=== PATIENT | male | born 1960 | race Caucasian/White ===

== ENCOUNTER 2020-06-26 18:54 | Emergency (ER) | payer MEDICARE, MEDICAID, SELFPAY ==
--- NOTE | ~2020-06-26 | CT_ITS ---
EXAMINATION: CT abdomen pelvis w con DATE: 06/26/2020 21:03 INDICATION: Urinary retention. Lower abdominal pain. TECHNIQUE: Computed tomography (CT) of the abdomen and pelvis was performed with 100 cc Omnipaque 350 intravenous contrast. The dose-length product was 452.89 mGy-cm. Automated exposure control and iter ative reconstruction technique were employed. COMPARISON: Comparison to multiple prior studies sequentially, with oldest reviewed study dated 03/19. FINDINGS: Lung bases are unremarkable. Heart size normal. No significant pleural or pericardial effus ion. There are calcified granulomas of the spleen. There are multiple liver cysts. There are cholecys tectomy clips. The pancreas, adrenal glands are unremarkable. There are bilateral renal cysts. There is atherosclerosis of the aorta. No evidence for aneurysm. There is a rectal Choletec anastomotic sut ure line. No free air or free fluid. No evidence for acute appendicitis. 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 Nonobstructive bowel gas pattern. Small hiatal hernia with thickening of the dis joselito esophagus, concerning for esophagitis. No acute osseous abnormality. IMPRESSION: 1. Mild thickening of the distal esophagus, suspicious for esophagitis. Reviewed, dictated and finalized at location [facility].
[2020-06-26 18:53] VITALS: BP 129/93; PULSE 76; RESP 18; TEMP 37.1; O2SAT 98
--- NOTE | 2020-06-26 19:32 | ED.ABDPAIN ---
HPI - Abdominal Pain General Chief Complaint: Urogenital-Male Stated Complaint: URINARY RETENTION Time Seen by Provider: 06/26/20 19:04 History of Present Illness HPI narrative: Patient is a 59-year-old male who presents ER with abdominal pain over the last day. It is in the inguinal region of his abdomen. Has had this pain in the past when he had an inguinal hernia. That was repaired several years ago. He reports he is urinating today and is also had a bowel movement however he was straining to have his bowel movement. No abdominal distention. No belching. Related Data Home Medications Medication Instructions Recorded Confirmed acetaminophen 500 mg tablet 500 mg PO Q4H PRN 09/15/19 albuterol sulfate 90 mcg/actuation 1 inhalation INHALATION Q4-6H PRN 09/15/19 breath activated powder inhaler,sensor buspirone 5 mg tablet 5 mg PO BID 09/15/19 citalopram 40 mg tablet 20 mg PO DAILY 09/15/19 ibuprofen 800 mg tablet 200 mg PO Q6H 09/15/19 multivitamin 1 tablet PO DAILY 09/15/19 paliperidone 6 mg tablet,extended 6 mg PO QAM 09/15/19 release 24 hr psyllium 1 tbsp PO DAILY 09/15/19 trazodone 50 mg tablet 50 mg PO BID 09/15/19 carboxymethylcellulose sodium 06/26/20 [Artificial Tears (cmc)] magnesium hydroxide [Milk of 06/26/20 Magnesia] quetiapine 50 mg PO BID 06/26/20 Allergies Allergy/AdvReac Type Severity Reaction Status Date / Time No Known Allergies Allergy Verified 06/26/20 19:19 Review of Systems Review of Systems: All systems reviewed & are unremarkable except as noted in HPI and below Constitutional: Constitutional: Denies chills, Denies fever(s) and Denies weakness ENT: Denies nasal congestion and Denies sore throat Cardiovascular: Cardiovascular: Denies chest pain and Denies radiating jaw, neck or arm pain Respiratory: Respiratory: Denies cough and Denies dyspnea Gastrointestinal: Gastrointestinal: Reports abdominal pain, Reports constipation, Denies nausea and Denies vomiting Genitourinary: Genitourinary: Denies hematuria, Denies dysuria and Denies urinary frequency [facility] Past Medical History Medical History (Updated 06/26/20 @ 22:48 by Vishnu Ellsworth MD) Anxiety COPD (chronic obstructive pulmonary disease) Hypercholesterolemia Manic depression Pancreatitis SVT (supraventricular tachycardia) Traumatic brain injury Surgical History Surgical History (Updated 06/26/20 @ 19:39 by Vishnu Ellsworth MD) H/O inguinal hernia repair Social History Social History Smoking status: Heavy tobacco smoker Alcohol intake: never Exam Narrative: Exam Narrative: GENERAL: Well-appearing, well-nourished, and in no acute distress. HEAD: Normocephalic, atraumatic. ENT: Mucous membranes moist. CHEST: Clear to auscultation. No respiratory distress. HEART: Regular rate and rhythm. Normal peripheral pulses. ABDOMEN: Soft, nontender, nondistended, normal active bowel sounds. No inguinal mass. EXTREMITIES: Normal range of motion. No edema. SKIN: Warm, dry, no rash. NEURO: Alert and oriented x3. Course Course Emergency Course: Unremarkable evaluation. Discharge home. Vital Signs Vital signs: Vital Signs Temperature 98.7 F 06/26/20 18:53 Pulse Rate 76 06/26/20 18:53 Respiratory Rate 18 06/26/20 18:53 Blood Pressure 129/93 H 06/26/20 18:53 Pulse Oximetry 98 06/26/20 18:53 Temperature 98.7 F 06/26/20 18:53 Pulse Rate 79 06/26/20 22:40 Respiratory Rate 16 06/26/20 22:40 Blood Pressure 128/81 06/26/20 22:40 Pulse Oximetry 100 06/26/20 22:40 MDM - Abdominal Pain Lab Data Result diagrams: 06/26/20 19:38 06/26/20 19:38 Labs: Lab Results 06/26/20 06/26/20 06/26/20 Range/Units 19:38 19:38 19:42 WBC 4.9 (4.5-10.0) K/mm3 RBC 4.31 L (4.6-6.20) M/mm3 Hgb 13.3 L (14.0-18.0) g/dL Hct 36.1 L (42.0-52.0) % MCV 83.8 (80-
[2020-06-26 19:45] LABS: Basophils Percent Auto 0.8 % (0.2-1.2); Eosinophils Absolute Auto 0.1 K/mm3 (0-0.3); Eosinophils Percent Auto 2.2 % (0-4.4); Hematocrit 36.1 % (42.0-52.0); Hemoglobin 13.3 g/dL (14.0-18.0); Immature Granulocyte Absolute 0.02 K/mm3 (0.00-0.031); Immature Granulocyte Percent A 0.4 % (0-0.5); Lymphocytes Absolute Auto 1.31 K/mm3 (0.9-3.2); Lymphocytes Percent Auto 26.8 % (18.3-44.2); Mean Corpuscular HGB Conc 36.8 g/dl (32-36); Mean Corpuscular Hemoglobin 30.9 pg (26-34); Mean Corpuscular Volume 83.8 fl (80-100); Mean Platelet Volume 10.1 fl (7.4-10.4); Monocytes Absolute Auto 0.4 K/mm3 (0.1-0.6); Monocytes Percent Auto 7.8 % (2.6-8.5); Platelet Count Result 181 k/mm3 (150-375); Red Blood Count 4.31 M/mm3 (4.6-6.20); Red Cell Distribution Width 11.9 % (11.5-14.5); White Blood Count 4.9 K/mm3 (4.5-10.0)
[2020-06-26 19:53] LABS: Add Urine Microscopic? YES; Appearance Urine Clear (Clear); Bilirubin Urine Negative (Negative); Blood Urine Negative (Negative); Color Urine Yellow (Yellow); Glucose Urine UA Negative (Negative); Ketones Urine Negative (Negative); Leukocyte Esterase Ur Negative LEU/UL (Negative); Mucus Urine Few /lpf; Nitrate Urine Negative (Negative); Protein Urine Negative (Negative); RBC Urine 0-2 /hpf (0-2); Specific Grav Ur 1.021 (1.001-1.035); Urobilinogen Urine Negative mg/dL (<2.0); WBC Urine 0-3 /hpf
[2020-06-26 19:59] LABS: Anion Gap 6 mmol/L (8-16); Blood Urea Nitrogen 12 mg/dL (9-20); Calcium 8.6 mg/dL (8.4-10.2); Carbon Dioxide 24 mmol/L (22-30); Chloride 105 mmol/L (98-107); Estimated CRCL calculation 82 ml/min; Estimated Glomerular Filt Rate > 60; Glucose 96 mg/dL (75-110); Potassium 3.9 mmol/L (3.4-5.0); Sodium 135 mmol/L (137-145)
[2020-06-26 20:30] VITALS: BP 135/83; PULSE 81; RESP 16; O2SAT 100
[2020-06-26 22:40] VITALS: BP 128/81; PULSE 79; RESP 16; O2SAT 100
[2020-06-27 00:41] VITALS: BP 128/81; PULSE 79; RESP 16; O2SAT 100
[2020-06-27 06:20] VITALS: BP 139/73; PULSE 83; RESP 16; O2SAT 100
== END 2020-06-27 06:20 ==
PROVIDERS: Emergency Provider Emergency Medicine; PCP Emergency Medicine
DX: R10.32 Left lower quadrant pain (principal); R10.31 Right lower quadrant pain; F41.9 Anxiety disorder, unspecified; J44.9 Chronic obstructive pulmonary disease, unspecified; E78.5 Hyperlipidemia, unspecified; F32.9 Major depressive disorder, single episode, unspecified; R93.3 Abnormal findings on diagnostic imaging of other parts of digestive tract; F17.200 Nicotine dependence, unspecified, uncomplicated
CPT/HCPCS: 36415; 74177; 80048; 81001; 85025; 99284; Q9967

== ENCOUNTER 2023-02-19 20:05 | Emergency (ER) | payer OTHER, SELFPAY ==
--- NOTE | ~2023-02-19 | CT_ITS ---
Clinical Indication: Chest pain, abdominal pain CT Scan of the Chest, Abdomen, and Pelvis with Contrast: Technique: Contiguous sections were acquired throughout the chest, abdomen, and pelvis after intraven ous administration of 100 cc of Omnipaque 350. Dose reduction technique was used on this scan by dhruv moon automated exposure control and iterative reconstruction technique. The dose-length product (DL P) was 1356.18 mGy-cm. COMPARISON: 07/17/2020 Findings: There is no evidence of any significant mediastinal, hilar or axillary lymphadenopathy. No definite p ulmonary embolus seen, though respiratory motion artifact mildly limits evaluation. No aortic aneurys m or dissection.. Probable mild coronary artery calcifications. There is no evidence of pleural or pericardial effusion. The lungs are clear. No pulmonary nodules or infiltrates are noted. Numerous hepatic cysts are present, most of which are less than a centimeter, but with 1 dominant cys t centrally measuring 5.7 cm in diameter. Cholecystectomy clips are present. The spleen, pancreas, ad renals and kidneys are within normal limits. 02/18/2023No lymphadenopathy. No bowel obstruction or bowel wall thickening. There is no evidence to suggest acute appendicitis. Sm all fat-containing umbilical hernia present. Urinary bladder is unremarkable. There is stable mass which appears to be exophytic from the rectum t o the left side, with peripheral thin calcification. Impression: No definite pulmonary embolus. Evaluation somewhat suboptimal due to respiratory motion artifact. No acute abnormalities identified. Small fat-containing umbilical hernia. Stable mass which appears to be exophytic from the left side of the rectum, as noted above. Stability since 2019 is consistent with benignity. Reviewed, dictated and finalized at [facility]. Impression: No definite pulmonary embolus. Evaluation somewhat suboptimal due to respirator y motion artifact. No acute abnormalities identified. Small fat-containing umbilical hernia. Stable mass which appears to be exophytic from the left side of the rectum, as noted above. Stability since 2019 is consistent with benignity.
[2023-02-19 20:18] VITALS: BP 121/78; PULSE 103; RESP 20; TEMP 36.4; O2SAT 97; O2SAT 99
--- NOTE | 2023-02-19 20:20 | ECG_ITS ---
Measurements Intervals [place] Rate: 91 P: 41 MD: 137 QRS: -14 QRSD: 94 T: 47 QT: 354 QTc: 436 Interpretive Statements SINUS RHYTHM MINOR RV CONDUCTION DELAY BORDERLINE ECG COMPARED TO ECG 05/14/2019 10:40:12 NO SIGNIFICANT CHANGES Electronically Signed On 02-20-2023 7:24:40 CDT by Reagan Chavez M.D.
--- NOTE | 2023-02-19 20:30 | ED.CHESTPAIN ---
HPI - Chest Pain General Chief Complaint: Chest Pain Stated Complaint: chest pain Time Seen by Provider: 02/19/23 20:22 History of Present Illness HPI narrative: Patient is a 62-year-old male with a history of COPD, hyperlipidemia, schizophrenia presenting with chest pain. Patient states that for the last hour he has had 10 out of 10 left-sided chest pain associated with shortness of breath. States that he has never had pain like this before. He also complains of abdominal pain. Denies headache, new numbness or weakness, nausea or vomiting, diarrhea, dysuria, leg swelling. Related Data Home Medications Medication Instructions Recorded Confirmed acetaminophen 500 mg tablet 500 mg PO Q4H PRN Pain 09/15/19 (Acetaminophen Pain Relief) albuterol sulfate 90 mcg/actuation 1 inhalation inhalation Q4-6H PRN 09/15/19 breath activated powder Shortness Of Breath Or Wheezing inhaler,sensor (Proair Digihaler) buspirone 5 mg tablet 5 mg PO BID 09/15/19 citalopram 40 mg tablet 20 mg PO DAILY 09/15/19 ibuprofen 800 mg tablet 200 mg PO Q6H 09/15/19 multivitamin 1 tablet PO DAILY 09/15/19 paliperidone 6 mg tablet,extended 6 mg PO QAM 09/15/19 release 24 hr psyllium (Fiber Smooth oral powder) 1 tbsp PO DAILY 09/15/19 trazodone 50 mg tablet 50 mg PO BID 09/15/19 carboxymethylcellulose sodium 1 % 06/26/20 eye drops (Artificial Tears (carboxymethylcellulose)) magnesium hydroxide 400 mg/5 mL 06/26/20 oral suspension (Milk of Magnesia) quetiapine 50 mg tablet 50 mg PO BID 06/26/20 Allergies Allergy/AdvReac Type Severity Reaction Status Date / Time No Known Allergies Allergy Verified 06/26/20 19:19 Review of Systems Review of Systems: All systems reviewed & are unremarkable except as noted in HPI and below PMFSH Past Medical History Medical History Anxiety COPD (chronic obstructive pulmonary disease) Hypercholesterolemia Manic depression Pancreatitis SVT (supraventricular tachycardia) Traumatic brain injury Surgical History Surgical History H/O inguinal hernia repair Family History Family History Father Cerebrovascular accident Mother Family history of heart disease in male family member before age 55 Other Family history of cardiovascular disease Social History Social History Smoking status: Heavy tobacco smoker Alcohol intake: never Gender identity (if verbalized by the patient): Male Exam Narrative: GENERAL: Well-appearing, well-nourished, and in no acute distress. HEAD: Normocephalic, atraumatic. EYES: PERRLA and EOMI. ENT: Nares clear, no rhinorrhea or epistaxis. Mucous membranes moist. NECK: Supple. CHEST: Clear to auscultation. No respiratory distress. HEART: Regular rate and rhythm. No murmur heard. Normal peripheral pulses. 2+ radial pulses ABDOMEN: Soft, tender in right upper quadrant and epigastrium, + voluntary guarding, no rebound EXTREMITIES: Normal range of motion. No edema. SKIN: Warm, dry, no rash. NEURO: No focal deficits. Alert and oriented x3. PSYCH: Normal mood and affect. Course Vital Signs Vital signs: Vital Signs Temperature 97.6 F 02/19/23 20:18 Pulse Rate 103 H 02/19/23 20:18 Respiratory Rate 20 02/19/23 20:18 Blood Pressure 121/78 02/19/23 20:18 Pulse Oximetry 97 02/19/23 20:18 Oxygen Delivery Room Air 02/19/23 20:18 Temperature 97.6 F 02/19/23 20:18 Pulse Rate 96 02/19/23 22:09 Respiratory Rate 16 02/19/23 22:09 Blood Pressure 102/66 02/19/23 22:09 Pulse Oximetry 96 02/19/23 22:09 Oxygen Delivery Room Air 02/19/23 20:18 MDM - Chest Pain MDM Narrative Medical decision making narrative: Patient is a 62-year-old male presenting with chest pain. Vitals w
[2023-02-19 20:50] LABS: Basophils Percent Auto 0.8 % (0.2-1.2); Eosinophils Absolute Auto 0.1 K/mm3 (0-0.3); Eosinophils Percent Auto 1.3 % (0-4.4); Hematocrit 35.2 % (42.0-52.0); Hemoglobin 12.7 g/dL (14.0-18.0); Immature Granulocyte Absolute 0.01 K/mm3 (0.00-0.031); Immature Granulocyte Percent A 0.3 % (0-0.5); Lymphocytes Absolute Auto 1.18 K/mm3 (0.9-3.2); Lymphocytes Percent Auto 29.6 % (18.3-44.2); Mean Corpuscular HGB Conc 36.1 g/dl (32-36); Mean Corpuscular Hemoglobin 30.7 pg (26-34); Mean Platelet Volume 10.9 fl (7.4-10.4); Monocytes Absolute Auto 0.5 K/mm3 (0.1-0.6); Neutrophils Absolute Auto 2.2 K/mm3 (1.3-6.7); Platelet Count Result 191 k/mm3 (150-375); Red Blood Count 4.14 M/mm3 (4.6-6.20); Red Cell Distribution Width 12.8 % (11.5-14.5)
[2023-02-19] MEDS: SODIUM CHLORIDE 0.9% IV 1,000 ML 999 ML IV CONT (20:54)
[2023-02-19 21:00] LABS: INR 1.1; Prothrombin Time 14.2 Seconds (11.1-14.7)
[2023-02-19 21:04] LABS: Lactic Acid Reflex 0.9 mmol/L (0.7-2.0)
[2023-02-19 21:05] LABS: Alanine Aminotransferase 25 U/L (6-50); Albumin Level 4.2 g/dL (3.5-5.1); Alkaline Phosphatase 81 U/L (38-126); Anion Gap 13 mmol/L (8-16); Aspartate Amino Transferase 27 U/L (17-59); Bilirubin,Total 1.5 mg/dL (0.2-1.3); Blood Urea Nitrogen 22 mg/dL (9-20); Calcium 8.9 mg/dL (8.4-10.2); Carbon Dioxide 18 mmol/L (22-30); Chloride 103 mmol/L (98-107); Estimated CRCL calculation 66 ml/min; Estimated Glomerular Filt Rate > 60; Glucose 108 mg/dL (65-110); Lipase 35 U/L (23-300); Magnesium 1.8 mg/dL (1.6-2.3); Potassium 3.5 mmol/L (3.4-5.0); Sodium 134 mmol/L (137-145)
[2023-02-19 21:17] LABS: NT Pro B Type Natriuretic Pept < 20 pg/mL (19.9-100); Troponin I < 0.012 ng/mL (0.000-0.034)
[2023-02-19 21:21] VITALS: BP 125/81; PULSE 101; RESP 16; O2SAT 99
[2023-02-19 21:41] VITALS: BP 119/83; PULSE 98; RESP 18; O2SAT 99
[2023-02-19 22:00] VITALS: BP 102/66; PULSE 97; RESP 16; O2SAT 97
[2023-02-19 22:09] VITALS: BP 102/66; PULSE 96; RESP 16; O2SAT 96
[2023-02-19 22:45] VITALS: BP 123/72; PULSE 99; RESP 17; O2SAT 97
[2023-02-20 00:23] LABS: Troponin I < 0.012 ng/mL (0.000-0.034)
[2023-02-20] MEDS: traZODone HCL 50 MG TABLET PO (03:43)
[2023-02-20] MEDS: QUEtiapine FUMARATE 25 MG TABLET 50 MG PO (03:43)
[2023-02-20 06:53] VITALS: BP 114/71; PULSE 94; RESP 19; O2SAT 99
== END 2023-02-20 07:50 ==
PROVIDERS: Emergency Provider Emergency Medicine; PCP Emergency Medicine
DX: R07.89 Other chest pain (principal); R06.02 Shortness of breath; J44.9 Chronic obstructive pulmonary disease, unspecified; E78.5 Hyperlipidemia, unspecified; F17.210 Nicotine dependence, cigarettes, uncomplicated
CPT/HCPCS: 36415; 71275; 74177; 80053; 83605; 83690; 83735; 83880; 84484; 85025; 85610; 85730; 93005; 96360; 99284; A9270; J7030; Q9967